=== PATIENT | female | born 1965 | race Caucasian/White ===

== ENCOUNTER → 2023-10-08 08:38 | Outpatient (REF) | payer BC, SELFPAY | LOC: HWRAD 08:38 | PROVIDERS: ATTENDING PHYSICIAN Student in an Organized Health Care Education/Training Program; FAMILY PHYSICIAN Internal Medicine; OTHER PHYSICIAN Registered Nurse; REFERRING PHYSICIAN Internal Medicine Endocrinology, Diabetes & Metabolism | DX: I70.392 Other atherosclerosis of unspecified type of bypass graft(s) of the extremities, left leg (principal) | CPT/HCPCS: 75635; Q9967 ==

== ENCOUNTER 2023-10-15 20:08 | Inpatient (IN) | payer BC, SELFPAY ==
[2023-10-11 11:22] VITALS: BMI 28.0
[2023-10-11 11:57] LABS: % Basophils 0.9 % (0-2); % Eosinophils 6.4 % (0-6); % Immature Granulocytes 0.4 % (0-0.5); % Monocytes 15.3 % (1.7-9.3); Absolute Basophils 0.1 10^3/uL (0-0.2); Absolute Eosinophils 0.5 10^3/uL (0-0.7); Absolute Lymphocytes 2.2 10^3/uL (1.2-3.4); Absolute Monocytes 1.2 10^3/uL (0.1-0.6); Absolute Neutrophils 3.6 10^3/uL (1.4-6.5); Hematocrit 31.7 % (37.0-47.0); Hemoglobin 10.7 g/dL (12.0-16.0); Mean Corp Hgb Conc. 33.8 g/dL (33.0-37.0); Mean Corpuscular Hgb 29.9 pg (27.0-31.0); Mean Corpuscular Volume 88.5 fL (81.0-99.0); Mean Platelet Volume 9.9 fL (7.4-10.4); Nucleated Red Blood Cells % 0 %; Platelet Count 146 10^3/uL (130-400); Red Blood Cell Count 3.58 10^6/uL (4.20-5.40); Red Cell Dist. Width 13.8 % (11.5-14.5); White Blood Cell Count 7.5 10^3/uL (4.8-10.8)
[2023-10-11 12:06] LABS: INR 1.21; PT 15.1 Sec (11.4-14.6)
[2023-10-11 12:07] LABS: APTT 27.6 Sec (23.4-35.0)
[2023-10-15] VITALS (13 sets, daily range): BP systolic 104–134; BP diastolic 60–76; BMI 27.0; BMI 27.4
[2023-10-15 12:58] LABS: Glucose - Point of Care 153 mg/dl (70-99)
[2023-10-15] MEDS: NSS 500 IV (13:06)
[2023-10-15 13:24] LABS: Blood Urea Nitrogen 36 mg/dl (7-17); Calcium 9.5 mg/dl (8.4-10.2); Carbon Dioxide 23 mmol/L (22-30); Chloride 107 mmol/L (98-107); Estimated Creatinine Clearance 42 ml/min; Glucose 152 mg/dl (70-99); Potassium 4.7 mmol/L (3.5-5.1); Sodium 139 mmol/L (135-145); eGFR 44.16
[2023-10-15] MEDS: DILAUDID 0.25 MG IV ×2 (16:20→20:34)
--- NOTE | 2023-10-15 18:20 | W.SUR.POST ---
Surgical Immediate Post Op
Note
Pre Op Diagnosis: PAOD
Post Op Diagnosis: PAOD
Procedure Performed: LLE angiogram and stent placement
Primary Surgeon: Hussein Brooks MD
Secondary Surgeons: Delano Garcia MD, PhD
Anesthesia: Per Anesthesia
Estimated Blood Loss: 10 cc
Fluids: Per Anesthesia
Drains/Shunts: No
Specimens/Cultures: No
Doppler/Duplex/Angio (Y/N): Yes, angiogram of LLE
Complications: None
Operative Findings: Right femoral access, LLE angiogram, treatment of distal left SFA lesion with bare metal stent
--- NOTE | 2023-10-15 18:27 | OR.RPT ---
Operative Report
Operative Report
Date of Operation: 10/15/2023
Pre Op Diagnosis:
1.) painful purple discoloration of left fifth toe
2.) suspected atheroemboli as possible source
Post Op Diagnosis:
1.) painful purple discoloration of left fifth toe
2.) suspected atheroemboli as possible source
Procedure:
1.) Balloon angioplasty and stenting of left superficial femoral artery stenosis (6 mm x 40 mm Zilver PTX stent)
2.) Diagnostic aortobiiliac arteriogram
3.) Diagnostic left lower extremity arteriogram
4.) Ultrasound-guided percutaneous access to the right common femoral artery
Surgeon: Hussein Brooks III, MD
Header Machine Operator: Delano Garcia MD PhD PGY-6
Anesthesia: Sedation with local
Complications: None
Estimated Blood Loss: Minimal
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 Presents to the office with painful purple discoloration of the left fifth toe. She was brought to the operating room for arteriogram
and possible endovascular intervention.
Procedure in Detail: Leeann Edwards was correctly identified and placed supine on the operating table. After adequate induction of anesthesia the bilateral groins were prepped and draped in the usual sterile fashion. A timeout was performed with the
nursing and anesthesia staff confirming the patient's identity as well as the nature and laterality of the procedure.
The right common femoral artery was identified under ultrasound guidance. The artery was patent. The superior and inferior aspects of the femoral head were identified with radiographic guidance and marked at the skin level. The proposed puncture
site was infiltrated with local anesthesia. We saved a copy of the ultrasound image to the medical record. Under ultrasound guidance we accessed the right common femoral artery with a micropuncture needle and upsized to a 5 Fr sheath over a [employer]
wire. The wire and a ShepherKLab hook flush catheter were advanced into the distal abdominal aorta and a diagnostic aorto-biiliac arteriogram was performed:
AORTO-ILIAC ARTERIOGRAM:
Aorta: Widely patent with no stenosis identified
Right common iliac artery: Widely patent with no stenosis identified
Right external iliac artery: Widely patent with no stenosis identified
Left common iliac artery: Widely patent with no stenosis identified
Left external iliac artery: Widely patent with no stenosis identified
Under roadmap guidance using a Glidewire and the SheFONU2erKLab hook catheter we selected the left common iliac artery and then the external iliac artery. A catheter was tracked up and over the aortic bifurcation and placed in the distal external iliac
artery. A diagnostic left lower extremity arteriogram was then performed which demonstrated the following:
LEFT LOWER EXTREMITY:
Common femoral artery: Widely patent with no stenosis identified
Profunda femoral artery: Widely patent with no stenosis identified
Superficial femoral artery: Patent. Isolated focal plaque contributing to high-grade stenosis in the mid superficial femoral artery. No other significant stenosis identified
Popliteal artery: Patent with no significant stenosis identified
Anterior tibial artery: Patent. Single-vessel tibial artery runoff. Continued across the ankle and into the foot deform the dorsalis pedis artery
Tibioperoneal trunk: Flush occluded
Peroneal artery: Occluded. Limited distal reconstitution at the ankle
Posterior tibial artery: Occluded with no distal reconstitution
ENDOVASCULAR INTERVENTION: Systemic heparin was administered. Exchanged out for a 6 Fr 45 cm sheath over a Storq wire. Selected the superficial femoral artery under roadmap guidance with Quickcross catheter and glidewire. The SFA stenosis was
crossed with a Quickcross and Glidewire. The wire and catheter were advanced into the distal superficial femoral artery and subtraction angio confirmed proper position in the true lumen. Exchanged out for a Storq wire. Under roadmap guidance a 6 mm
x 40 mm Zilver PTX stent was positioned and deployed across the stenosis. I profiled the stent with a 6 mm angioplasty balloon.
Subsequent arteriogram demonstrated an excellent technical result. The SFA stent was widely patent with no residual stenosis identified. Brisk outflow was identified through the distal superficial femoral artery, popliteal artery and anterior
tibial artery. No other filling defects or stenoses were identified in the SFA/pop distribution. There was a flush occlusion of the tibioperoneal trunk at its origin. The anterior tibial artery was patent. The anterior tibial artery continued
across the ankle to form the dorsalis pedis artery. There are areas of mild smooth stenosis in the distal anterior tibial artery. This supplied the forefoot. There was relatively less contrast-enhancement of the fifth toe and lateral forefoot
compared to other areas of the forefoot. Significant plantar small vessel occlusive disease was identified.
Satisfied with this result we concluded the procedure. The sheath tip was pulled back into the right external iliac artery. Protamine was administered. The sheath was pulled and direct manual pressure was held over the puncture site. Hemostasis
was achieved. A sterile dressing was applied.
The patient tolerated the procedure well and was taken to the recovery area in stable condition.
Attestation: I was present and responsible for the entire procedure.
Signed:
Hussein Brooks III, MD
[facility]
[phone] (vcyi)
[2023-10-15 18:48] LABS: Glucose - Point of Care 116 mg/dl (70-99)
[2023-10-15] MEDS: NSS 1000 IV (19:28)
[2023-10-15] MEDS: HEPARIN 5000 UNITS SC (19:28)
[2023-10-15] MEDS: MORPHINE SULFATE 1 MG IV ×2 (19:35→19:54)
--- NOTE | 2023-10-15 20:10 | PTCARENOTE ---
Pt arrived to [facility] from PACU at 2009 on a stretcher and was pulled over by the SCALE MECHANIC's and [facility] RN and tech. Pt maintained a flat position and placed on bedrest. Per SCALE MECHANIC, Debbie, Q15x4 site checks and b/l lower extremity neurovascular checks
complete. Started Q30x2 site checks and b/l lower extremity neurovascular checks. Pt complaining of pain due to lack of circulation in little toe on Left foot, provider notified. Head to toe assessment complete. Pt understands strict bedrest order.
Pt oriented to room and call burgos. Bed locked and in lowest position. Will continue to monitor.
[2023-10-15 21:21] LABS: Glucose - Point of Care 86 mg/dl (70-99)
[2023-10-15] MEDS: LIPITOR 40 MG PO (22:13)
[2023-10-15] MEDS: TOPAMAX 25 MG PO (22:13)
[2023-10-15] MEDS: LANTUS 0.12 UNITS SC (22:15)
[2023-10-15] MEDS: DILAUDID 2 MG PO (23:15)
[2023-10-16 00:39] VITALS: BP 126/64
[2023-10-16 03:09] VITALS: BP 107/59
[2023-10-16] MEDS: DILAUDID 0.25 MG IV (03:48)
[2023-10-16] MEDS: SYNTHROID 88 MCG PO (05:28)
[2023-10-16 07:30] VITALS: BP 140/72
[2023-10-16 07:39] LABS: INR 1.18; PT 15.1 Sec (11.4-14.6)
[2023-10-16 07:40] LABS: APTT 26.5 Sec (23.4-35.0)
[2023-10-16 07:45] LABS: Hematocrit 29.3 % (37.0-47.0); Hemoglobin 10.1 g/dL (12.0-16.0); Mean Corp Hgb Conc. 34.5 g/dL (33.0-37.0); Mean Corpuscular Hgb 30.4 pg (27.0-31.0); Mean Corpuscular Volume 88.3 fL (81.0-99.0); Mean Platelet Volume 10.4 fL (7.4-10.4); Platelet Count 133 10^3/uL (130-400); Red Blood Cell Count 3.32 10^6/uL (4.20-5.40); Red Cell Dist. Width 14.1 % (11.5-14.5); White Blood Cell Count 6.7 10^3/uL (4.8-10.8)
[2023-10-16 08:00] LABS: Glucose - Point of Care 122 mg/dl (70-99)
[2023-10-16 08:01] LABS: Blood Urea Nitrogen 23 mg/dl (7-17); Carbon Dioxide 26 mmol/L (22-30); Chloride 108 mmol/L (98-107); Estimated Creatinine Clearance 53 ml/min; Glucose 121 mg/dl (70-99); Potassium 4.3 mmol/L (3.5-5.1); Sodium 142 mmol/L (135-145); eGFR 58.97
[2023-10-16] MEDS: WELLBUTRIN XL (24 hour extended release) 150 MG PO (08:21)
[2023-10-16] MEDS: LOW STRENGTH ASPIRIN 81 MG PO (08:21)
[2023-10-16] MEDS: HEPARIN 5000 UNITS SC (08:21)
--- NOTE | 2023-10-16 09:56 | W.PN.VS ---
Today's Communication / Plan
-
D/w Dr Brooks
Assessment/Plan
-
POD 1 Balloon angioplasty and stenting of left superficial femoral artery stenosis (6 mm x 40 mm Zilver PTX stent)
Plan:
-DC today
Subjective Data
-
Date of Service: October 16, 2023
Pt seen at bedside this am. We spoke at length and I answered all of her questions. No events overnight.
Objective Data
-
Vital Signs
Temp Pulse Resp BP Pulse Ox
97.7 F 63 16 140/72 97
10/16/23 07:30 10/16/23 07:30 10/16/23 07:30 10/16/23 07:30 10/16/23 07:30
Intake and Output
10/15/23 10/16/23 10/17/23
06:59 06:59 06:59
Intake Total 1200 / 1200
Output Total 400 / 400
Balance 800 / 800
Intake:
Oral fluids 480 / 480
IV fluids (Total) 720 / 720
NSS 100 / 100
Output:
Urine, Voided 400 / 400
Other:
Number of approximated MODERATE 3
amounts of urine
Number of approximated LARGE 1
amounts of urine
How many times incontinent 1
SATURATED amount urine
Lab Results
10/16/23 06:59
10/16/23 06:59
Calcium 9.0 mg/dl (8.4-10.2) 10/16/23 06:59
Physical Exam
-
AAOX3
No tachypnea
No tachycardia
Abd soft
Groin site c/d/i, no hematoma or drainage
BL feet warm, 5th toe dusky as before but warm, painless
--- NOTE | 2023-10-16 09:56 | W.DS.TRANS ---
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
-
Discharge Instructions:
Discharge Diagnosis/Procedures Balloon angioplasty and stenting of left
superficial femoral artery stenosis (6 mm x 40
mm Zilver PTX stent)
Diet As tolerated
Activity No strenuous activity
Driving Restrictions As prior to admission
Bathing Restrictions OK to Shower
Others Tests Ultrasound appointment 11/05 at 2 PM
Instructions:
Stand-Alone Forms: DC Instr - Vascular OR
Changes to Home Medications: No
Discharge Medications:
DC Medications w/original date entered in [facility]
aspirin 81 mg chewable tablet 81 mg PO DAILY Blood Clot Prevention/Tx 02/13/18
bupropion HCl 150 mg 24 hr tablet, extended release 150 mg PO DAILY Depression 02/13/18
metformin 500 mg tablet,extended release 24 hr 2,000 mg PO DAILY Diabetes 02/13/18
atorvastatin 40 mg tablet 40 mg PO HS Heart Failure 10/11/23
calcium carbonate 500 mg PO DAILY Supplement 10/11/23
cholecalciferol (vitamin D3) 25 mcg (1,000 unit) tablet (Vitamin D3) 25 mcg PO DAILY Supplement 10/11/23
insulin glargine 100 unit/mL (3 mL) subcutaneous pen (Lantus Solostar U-100 Insulin) 28 unit SC HS Diabetes 10/11/23
levothyroxine 88 mcg tablet 88 mcg PO DAILY Thyroid 10/11/23
magnesium 200 mg tablet 400 mg PO DAILY Electrolyte Repletion 10/11/23
melatonin 3 mg tablet 3 mg PO HS PRN sleep 10/11/23
rivaroxaban 15 mg tablet (Xarelto) 15 mg PO DAILY Blood Clot Prevention/Tx 10/11/23
topiramate 25 mg tablet 25 mg PO HS Mental Health/Anxiety 10/11/23
Home Medication Changes
Pending Results: No
--- NOTE | 2023-10-16 10:37 | CM ---
Met with patient at bedside; initial assessment completed
Pharmacy verified: [facility] [id number] [facility], [place], [place]
Patient reported she lives alone; multilevel home; 2 steps to enter; 12-13 steps between floors; railing present; powder room on 1st floor; 2nd floor bath has walk-in shower stall
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
NO SNF history
DME: wears continuous glucose monitor
Father will provide transportation home
Plan: discharge to home today; no needs
[2023-10-16 10:51] VITALS: BP 135/73
== END 2023-10-16 11:17 | disposition home or self-care (01) | DRG 254 ==
LOC: 2 SOUTH 20:08
PROVIDERS: Nurse Practitioner; ADMITTING PHYSICIAN Surgery Vascular Surgery; FAMILY PHYSICIAN Internal Medicine
PROC: 047L34Z Dilation of Left Femoral Artery with Drug-eluting Intraluminal Device, Percutaneous Approach (ICD-10-PCS; 2023-10-15)
DX: E11.51 Type 2 diabetes mellitus with diabetic peripheral angiopathy without gangrene (principal); I75.022 Atheroembolism of left lower extremity; I70.222 Atherosclerosis of native arteries of extremities with rest pain, left leg; Z95.820 Peripheral vascular angioplasty status with implants and grafts; E03.9 Hypothyroidism, unspecified; Z79.82 Long term (current) use of aspirin; Z79.4 Long term (current) use of insulin; Z79.84 Long term (current) use of oral hypoglycemic drugs; Z79.890 Hormone replacement therapy; Z79.899 Other long term (current) drug therapy; Z88.5 Allergy status to narcotic agent
CPT/HCPCS: 36415; 37226; 75625; 75716; 76937; 80048; 82962; 85025; 85027; 85610; 85730; 93005; C1725; C1769; C1874; C1894; Q9967

== ENCOUNTER → 2023-11-13 08:28 | Outpatient (REF) | payer BC, SELFPAY | LOC: HWRCS 08:28 | PROVIDERS: ATTENDING PHYSICIAN Student in an Organized Health Care Education/Training Program; FAMILY PHYSICIAN Internal Medicine | DX: I77.9 Disorder of arteries and arterioles, unspecified (principal); R01.1 Cardiac murmur, unspecified | CPT/HCPCS: 93306 ==

== ENCOUNTER → 2023-11-18 12:56 | Outpatient (REF) | payer BC, SELFPAY | LOC: RAD 12:56 | PROVIDERS: ATTENDING PHYSICIAN Surgery Vascular Surgery; FAMILY PHYSICIAN Internal Medicine | DX: I77.9 Disorder of arteries and arterioles, unspecified (principal) | CPT/HCPCS: 93922; 93925 ==